=== PATIENT | female | born 1935 | race Two or more races ===

== ENCOUNTER 2022-12-01 15:06 | Emergency (ER) | payer OTHER ==
[~2022-12-01] VITALS: Ht 152.4 cm; Wt 67.3 kg
[~2022-12-01 15:06] MED LIST: FERR325T27 PO; LISI1TAB PO; METF1000 PO; NAPR-1025 PO; SIMV-46 PO
[2022-12-01 15:18] VITALS: BP 132/73; PULSE 91; RESP 16; TEMP 98.4
[2022-12-01] MEDS ORDERED: ASPI-1444 PO (15:21)
[2022-12-01] MEDS ORDERED: LOSA1TAB42 PO (15:21)
[2022-12-01] MEDS ORDERED: METF-446 PO (15:21)
[2022-12-01] MEDS ORDERED: CALC-1124 PO (15:21)
[2022-12-01] MEDS ORDERED: ACET-2895 PO (15:21)
[2022-12-01] MEDS ORDERED: SIMV-43 PO (15:21)
[2022-12-01] MEDS ORDERED: FAMO40TA7 PO (15:21)
[2022-12-01] MEDS ORDERED: CHOL200059 PO (15:21)
[2022-12-01] MEDS ORDERED: INSU100I66 SQ (15:21)
[2022-12-01] MEDS ORDERED: TraMADol HCL 50 MG TABLET PO ONE (22:30)
== END 2022-12-01 23:30 | disposition home or self-care (01) ==
LOC: EMS 15:09
DX: S40.021A Contusion of right upper arm, initial encounter (principal); F03.90 Unspecified dementia, unspecified severity, without behavioral disturbance, psychotic disturbance, mood disturbance, and anxiety; E11.9 Type 2 diabetes mellitus without complications; I10 Essential (primary) hypertension; W06.XXXA Fall from bed, initial encounter; Y93.89 Activity, other specified; Y92.89 Other specified places as the place of occurrence of the external cause; Y99.8 Other external cause status
CPT/HCPCS: 82962; 99284